=== PATIENT | female | born 2000 | race Caucasian/White ===

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

== ENCOUNTER → 2023-01-18 | Outpatient (CLI) | payer SELFPAY ==
[2023-01-18 07:36] LABS: Anion Gap 4 (5-15); BUN 19 mg/dL (7-18); BUN/Creat Ratio 21.8 RATIO (10-20); Calcium,Total 9.6 mg/dL (8.5-10.1); Chloride 106 mmol/L (98-107); Creatinine, Serum 0.87 mg/dL (0.55-1.02); EST Glomerular Filtration Rate 87 mL/min (>60); Est Glom Filt Rate - Afr Amer 106 mL/min (>60); Glucose 91 mg/dL (74-106); Potassium 3.8 mmol/L (3.5-5.1); Sodium Level 137 mmol/L (136-145)
[2023-01-18 09:55] LABS: Insulin 18.3 mU/L (2.6-37.6)
== END | disposition home or self-care (01) ==
DX: N94.3 Premenstrual tension syndrome (principal); E88.81 Metabolic syndrome and other insulin resistance
CPT/HCPCS: 36415; 80048; 83525; 84144

== ENCOUNTER → 2023-01-25 | Outpatient (CLI) | payer SELFPAY ==
[2023-01-25 08:52] LABS: Progesterone Level 8.04 ng/mL (See Comment)
== END | disposition home or self-care (01) ==
DX: E88.81 Metabolic syndrome and other insulin resistance (principal); N94.6 Dysmenorrhea, unspecified
CPT/HCPCS: 36415; 84144

== ENCOUNTER → 2023-03-03 | Outpatient (CLI) | payer SELFPAY ==
[2023-03-03 09:24] LABS: Progesterone Level 4.54 ng/mL (See Comment)
== END | disposition home or self-care (01) ==
LOC: LAB 06:45
DX: E88.819 Insulin resistance, unspecified (principal); E28.2 Polycystic ovarian syndrome
CPT/HCPCS: 36415; 84144